=== PATIENT | female | born 1970 | race Two or more races ===

== ENCOUNTER 2023-11-01 11:57 | Emergency (ER) | payer MEDICAID ==
[~2023-11-01] VITALS: Ht 162.6 cm; Wt 73.8 kg
[2023-11-01 12:47] LABS: ALANINE AMINOTRANSFERASE 18 U/L (12-78); ALBUMIN 3.7 G/DL (3.4-5.0); ALBUMIN/GLOBULIN RATIO 0.8 (1.1-1.5); ALKALINE PHOSPHATASE 91 IU/L (46-116); ANION GAP 11 (8-16); ASPARTATE AMINO TRANSFERASE 21 U/L (10-37); BILIRUBIN,TOTAL 0.4 MG/DL (0.1-1.0); BLOOD UREA NITROGEN 14 MG/DL (7-18); BUN/CREATININE RATIO 17.3 (10.0-20.0); CHLORIDE 103 MMOL/L (99-107); CREATININE 0.81 MG/DL (0.40-0.90); GLUCOSE 104 MG/DL (70-104); POTASSIUM 3.7 MMOL/L (3.5-5.1); SODIUM 139 MMOL/L (135-145); TOTAL PROTEIN 8.2 G/DL (6.4-8.2); eCRCL 70 ML/MIN; eGFR 74 ML/MIN
[2023-11-01 12:53] LABS: PRO BRAIN NATRIURETIC PEPTIDE < 30 PG/ML (0-125)
[2023-11-01 13:09] LABS: BASOPHILS % (AUTO) 0.1 % (0-1); EOSINOPHILS % (AUTO) 0.3 % (0-6); HEMATOCRIT 42.8 % (35.0-45.0); HEMOGLOBIN 14.4 g/dl (12.0-16.0); LYMPHOCYTES % (AUTO) 20.1 % (21-51); MEAN CORPUSCULAR HEMOGLOBIN 30.4 PG (27.0-31.0); MEAN CORPUSCULAR HGB CONC 33.6 g/dL (33.0-36.5); MEAN CORPUSCULAR VOLUME 90.6 FL (78-98); MEAN PLATELET VOLUME 8.2 FL (7.4-10.4); MONOCYTES % (AUTO) 6.9 % (2-12); NEUTROPHILS % (AUTO) 72.6 % (42-75); PLATELET COUNT 249 X10'3 (140-440); RED BLOOD COUNT 4.73 X10'6 (4.20-5.60); RED CELL DISTRIBUTION WIDTH 13.6 % (11.5-14.5); WHITE BLOOD COUNT 15.1 X10'3 (4.5-11.0)
[2023-11-01] MEDS: diphenhydrAMINE 50 mg/ml inj IV ONE (15:04)
[2023-11-01] MEDS: azithromycin 250mg tablet PO ONE (15:04)
[2023-11-01] MEDS: methylPREDNISolone sod succ 125mg/2ml vial IV ONE (15:04)
[2023-11-01] MEDS: ipratropium/albuterol 3ml nebule NEB ONE (15:11)
[2023-11-01 15:12] VITALS: PULSE 74; PULSE 81; RESP 16; RESP 18; O2SAT 100
[2023-11-01] MEDS ORDERED: AZIT-164 PO (15:47)
[2023-11-01] MEDS ORDERED: DEC4T PO (15:48)
[2023-11-01] MEDS ORDERED: ALBU6.7H14 INH (15:53)
[2023-11-01 16:03] VITALS: BP 128/83; PULSE 79; RESP 14; TEMP 97.9; O2SAT 93
[2023-11-01 16:21] LABS: C-REACTIVE PROTEIN 3.17 MG/DL (0.0-0.5)
== END 2023-11-01 16:27 | disposition home or self-care (01) ==
LOC: ER 11:59
DX: J45.909 Unspecified asthma, uncomplicated (principal); Z20.822 Contact with and (suspected) exposure to COVID-19; E03.9 Hypothyroidism, unspecified; Z79.899 Other long term (current) drug therapy; Z79.2 Long term (current) use of antibiotics
CPT/HCPCS: 36415; 71045; 80053; 83880; 84145; 84484; 85025; 86140; 87070; 87502; 87503; 87811; 93005; 94640; 96374; 96375; 99285; J1200; J2930; 94760